=== PATIENT | male | born 1985 | race Caucasian/White ===

== ENCOUNTER 2024-05-24 16:31 | Inpatient (IN) | payer OTHER ==
[2024-05-24 17:13] VITALS: BMI 34.5
[2024-05-24] MEDS ORDERED: BENZOCAINE/MENTHOL (CHLORASEPTIC ) LOZENGE MM PRN (18:57)
[2024-05-24] MEDS ORDERED: ACETAMINOPHEN 325 MG TABLET (FP) PO PRN (18:57)
[2024-05-24] MEDS ORDERED: MAGNESIUM HYDROX 2400MG/30ML ORAL SUSPENSION 30 ML CUP PO PRN (18:57)
[2024-05-24] MEDS ORDERED: IBUPROFEN 400 MG TABLET (FP) PO PRN (18:57)
[2024-05-24] MEDS ORDERED: MAG HYDROX/AL HYDROX/SIMETH 30 ML UNIT-DOSE CUP PO PRN (18:57)
[2024-05-24] MEDS ORDERED: NALOXONE (NARCAN) HCL 4 MG/0.1 ML SPRAY NS PRN (18:57)
[2024-05-24] MEDS ORDERED: guaiFENesin 600 MG TABLET.ER (FP) PO PRN (18:57)
[2024-05-24] MEDS ORDERED: BISMUTH SUBSALICYLATE 524 MG/30 ML PO PRN (18:57)
[2024-05-24] MEDS ORDERED: DICYCLOMINE HCL 10 MG CAPSULE PO PRN (18:57)
[2024-05-24] MEDS ORDERED: ONDANSETRON *ODT* 4 MG TABLET SL PRN (18:57)
[2024-05-24] MEDS ORDERED: BENZONATATE 200 MG CAPSULE PO PRN (18:57)
[2024-05-24] MEDS ORDERED: POLYETHYLENE GLYCOL (HEALTHYLAX) 3350 17 GM PACKET PO PRN (18:57)
[2024-05-24] MEDS ORDERED: chlordiazePOXIDE HCL 25 MG CAPSULE ONE ×2 (19:20→22:00)
[2024-05-24] MEDS: chlordiazePOXIDE HCL 25 MG CAPSULE PO PRN (19:22)
[2024-05-24] MEDS: THIAMINE 100 MG TABLET PO SCH (22:01)
[2024-05-24] MEDS ORDERED: MELATONIN 5 MG TABLETS ONE (22:01)
[2024-05-24] MEDS: MELATONIN 5 MG TABLETS PO SCH (22:01)
[2024-05-24] MEDS: chlordiazePOXIDE HCL 25 MG CAPSULE PO SCH (22:01)
[2024-05-24] MEDS: VITAMINS A AND D TOPICAL OINTMENT TP SCH (22:01)
[2024-05-25] MEDS ORDERED: chlordiazePOXIDE HCL 25 MG CAPSULE ONE (05:25)
[2024-05-25] MEDS: PRENATAL VITAMINS W/ FOLIC ACID TABLET (FP) PO SCH (09:18)
[2024-05-25 12:00] LABS: HEMATOCRIT 49.5 % (35.4-49); HEMOGLOBIN 16.9 GM/dL (11.7-16.9); MCH 32.1 pg (25.7-33.7); MCHC 34.2 g/dl (32.0-35.9); MEAN CELL VOLUME 93.8 fl (80-96); MEAN PLT VOLUME 8.5 fl (7.5-11.1); RBC 5.28 M/mm3 (4.00-5.60); WHITE BLOOD COUNT 16.3 K/mm3 (4.0-10.0)
[2024-05-25 12:24] LABS: CHLORIDE 104 mmol/L (98-107); POTASSIUM 3.7 mmol/L (3.5-5.1); SODIUM 138 mmol/L (136-145)
[2024-05-25 12:28] LABS: ALBUMIN 3.6 g/dl (3.4-5.0); ANION GAP 9 mmol/L (4-13); BLOOD UREA NITROGEN 13.2 mg/dL (7-18); CO2 25 mmol/L (21-32)
[2024-05-25 12:29] LABS: GLUCOSE,RANDOM 110 mg/dL (74-106)
[2024-05-25 12:31] LABS: CALCIUM 10.1 mg/dL (8.5-10.1); CREATININE 1.1 mg/dL (0.55-1.3); SGOT/AST 43 U/L (15-37); SGPT/ALT 77 U/L (13-61)
[2024-05-25 12:33] LABS: BILIRUBIN,TOTAL 1.5 mg/dL (0.2-1); TOT PROT 7.8 g/dl (6.4-8.2)
[2024-05-25 12:34] LABS: ALK PHOS 106 U/L (45-117)
[2024-05-25 12:38] LABS: PLATELET COUNT 353 10^3/uL (134-434)
[2024-05-25 13:04] LABS: HIV INTERPRETATION NEGATIVE (NEGATIVE)
[2024-05-25] MEDS: LOPERAMIDE HCL 2 MG CAPSULE PO PRN (17:43)
[2024-05-25] MEDS: METHOCARBAMOL 500 MG TABLET PO PRN (22:47)
[2024-05-25] MEDS: hydrOXYzine PAMOATE 25 MG CAPSULE (FP) PO PRN (22:47)
[2024-05-26] MEDS: chlordiazePOXIDE HCL 25 MG CAPSULE PO SCH (05:57)
[2024-05-27] MEDS ORDERED: chlordiazePOXIDE HCL 10 MG CAPSULE PO PRN
[2024-05-27] MEDS: chlordiazePOXIDE HCL 10 MG CAPSULE PO SCH (05:54)
[2024-05-28] MEDS: MELATONIN 5 MG TABLETS PO ONE (01:55)
[2024-05-28] MEDS: chlordiazePOXIDE HCL 10 MG CAPSULE PO SCH (05:36)
[2024-05-28] MEDS: IBUPROFEN 600 MG TABLET (FP) PO PRN (05:38)
[2024-05-28 11:31] LABS: BASO % 0.3 % (0-2.0); EOS % 4.4 % (0-4.5); HEMATOCRIT 43.5 % (35.4-49); LYMPH % 27.6 % (8-40); MCH 32.9 pg (25.7-33.7); MCHC 34.6 g/dl (32.0-35.9); MEAN CELL VOLUME 95.1 fl (80-96); MEAN PLT VOLUME 8.2 fl (7.5-11.1); MONO % 10.3 % (3.8-10.2); NEUT % 57.4 % (42.8-82.8); PLATELET COUNT 297 10^3/uL (134-434); RBC 4.57 M/mm3 (4.00-5.60); WHITE BLOOD COUNT 8.9 K/mm3 (4.0-10.0)
[2024-05-28 11:40] LABS: POTASSIUM 4.1 mmol/L (3.5-5.1)
[2024-05-28 11:45] LABS: BLOOD UREA NITROGEN 13.4 mg/dL (7-18)
[2024-05-28 11:47] LABS: ALBUMIN 2.8 g/dl (3.4-5.0)
[2024-05-28 11:48] LABS: CREATININE 0.9 mg/dL (0.55-1.3)
[2024-05-28 11:49] LABS: BILIRUBIN,TOTAL 0.3 mg/dL (0.2-1); TOT PROT 6.2 g/dl (6.4-8.2)
[2024-05-28] MEDS ORDERED: NALOXONE (NYS OPIOID OVERDOSE PROGRAM) 4 MG/0.1 ML SPRAY NS PRN (13:00)
[2024-05-28] MEDS: SUVOREXANT 10 MG TABLET PO PRN (22:10)
[2024-05-29] MEDS: chlordiazePOXIDE HCL 10 MG CAPSULE PO ONE (05:49)
[2024-05-29 06:50] VITALS: RESP 17
[2024-05-29 09:21] VITALS: BP 128/85; PULSE 83; TEMP 97.5
== END 2024-05-29 10:26 | disposition home or self-care (01) | DRG 774 ==
LOC: YASAS 16:31 → Y3N 05-25 09:16
PROVIDERS: ADMIT Allergy & Immunology; ATTEND Allergy & Immunology
PROC: HZ2ZZZZ Detoxification Services for Substance Abuse Treatment (ICD-10-PCS; principal; 2024-05-25)
DX: F10.230 Alcohol dependence with withdrawal, uncomplicated (principal); F14.20 Cocaine dependence, uncomplicated; F17.210 Nicotine dependence, cigarettes, uncomplicated; F19.24 Other psychoactive substance dependence with psychoactive substance-induced mood disorder; F31.9 Bipolar disorder, unspecified; D72.829 Elevated white blood cell count, unspecified; G47.00 Insomnia, unspecified; I10 Essential (primary) hypertension; J45.909 Unspecified asthma, uncomplicated; K21.9 Gastro-esophageal reflux disease without esophagitis
CPT/HCPCS: 36415; 80053; 80305; 80307; 85025; 85027; 86780; 86803; 87389; 87491; 87591; 93005; 93010